=== PATIENT | female | born 1990 | race Two or more races ===

== ENCOUNTER 2023-01-04 19:45 | Inpatient (IN) | payer OTHER ==
[~2023-01-04] VITALS: Ht 175.3 cm; Wt 58.1 kg
== END 2023-01-08 13:36 | disposition home or self-care (01) | DRG 831 ==
LOC: LDR 19:45 → OB/GYN 01-06 20:37
PROVIDERS: ADMIT Obstetrics & Gynecology Obstetrics; ATTEND Obstetrics & Gynecology Obstetrics
PROC: 4A1HXCZ Monitoring of Products of Conception, Cardiac Rate, External Approach (ICD-10-PCS; principal; 2023-01-04)
PROC: BY4FZZZ Ultrasonography of Third Trimester, Single Fetus (ICD-10-PCS; 2023-01-04)
PROC: BU4CZZZ Ultrasonography of Uterus and Ovaries (ICD-10-PCS; 2023-01-04)
DX: O46.8X3 Other antepartum hemorrhage, third trimester (principal); O60.03 Preterm labor without delivery, third trimester; O26.873 Cervical shortening, third trimester; O26.843 Uterine size-date discrepancy, third trimester; O36.8130 Decreased fetal movements, third trimester, not applicable or unspecified; O26.853 Spotting complicating pregnancy, third trimester; Z3A.32 32 weeks gestation of pregnancy; Z20.822 Contact with and (suspected) exposure to COVID-19

== ENCOUNTER 2023-02-23 06:18 | Inpatient (IN) | payer OTHER ==
[~2023-02-23] VITALS: Ht 175.3 cm; Wt 111.1 kg
[2023-02-23] MEDS ORDERED: PRENATAL TABLE1 EAC1 PO (07:15)
[2023-02-23] MEDS ORDERED: TRANDATE300 MG PO (07:16)
[2023-02-23] MEDS ORDERED: IRON18 MG PO (07:16)
== END 2023-02-25 16:01 | disposition home or self-care (01) | DRG 807 ==
LOC: LDR 06:18 → OB/GYN 06:18
PROVIDERS: ADMIT Obstetrics & Gynecology Obstetrics; ATTEND Obstetrics & Gynecology Obstetrics
PROC: 10E0XZZ Delivery of Products of Conception, External Approach (ICD-10-PCS; principal; 2023-02-23)
PROC: 4A1HXCZ Monitoring of Products of Conception, Cardiac Rate, External Approach (ICD-10-PCS; 2023-02-23)
PROC: 3E033VJ Introduction of Other Hormone into Peripheral Vein, Percutaneous Approach (ICD-10-PCS; 2023-02-23)
PROC: 3E0P7VZ Introduction of Hormone into Female Reproductive, Via Natural or Artificial Opening (ICD-10-PCS; 2023-02-23)
DX: O80 Encounter for full-term uncomplicated delivery (principal); Z37.0 Single live birth; Z3A.39 39 weeks gestation of pregnancy; Z20.822 Contact with and (suspected) exposure to COVID-19